=== PATIENT | female | born 1985 ===

== ENCOUNTER 2023-03-16 09:17 | Outpatient (REF) | payer MEDICAID, OTHER, SELFPAY ==
--- NOTE | ~2023-03-16 | US_ITS ---
EXAMINATION: US COMPLETE ABDOMEN WITH LIVER ELASTOGRAPHY CLINICAL INFORMATION: Elevated liver function tests. COMPARISON: None available. TECHNIQUE: Real-time imaging of the abdominal viscera. Noninvasive ultrasound liver fibrosis assessment is performed using Giulia ElastPQ point quantification shear wave elastography (2D-SWE) with a C5-2 MHz transducer. Multiple elastography samples are obtained. FINDINGS: PANCREAS: Normal. The visualized pancreatic head and body are normal in appearance. The remainder of the pancreas is obscured from visualization by the overlying bowel gas. ABDOMINAL AORTA: The proximal, middle, and distal aortic segments are normal in caliber. INFERIOR VENA CAVA: Visualized portions are normal. LIVER: There is hepatomegaly. The liver is normal in contour and increased in echotexture, with pericholecystic sparing. No focal lesion or intrahepatic biliary duct dilatation. The right lobe measures 20.5 cm in length. The left lobe measures 13.5 cm in length. Portal flow is towards the liver (hepatopetal). Shear wave liver elastography median stiffness is 1.49 m/s (reference: normal median stiffness is 1.3 m/s or less). IQR/median stiffness to assess sampling precision is 0.07 (reference: good quality data set is IQR/median stiffness of 0.15 or less). GALLBLADDER: Normal. The gallbladder is physiologically distended without evidence of stones, sludge, polyps, wall thickening or pericholecystic fluid. COMMON BILE DUCT: Normal in caliber measuring 0.3 cm in diameter. RIGHT KIDNEY: Normal. No hydronephrosis. No renal calculi or focal parenchymal lesions. The kidney measures 11.1 cm in maximum dimension. LEFT KIDNEY: Normal. No hydronephrosis. No renal calculi or focal parenchymal lesions. The kidney measures 10.7 cm in maximum dimension. SPLEEN: Normal. The spleen measures 10.9 cm in maximum dimension. FREE FLUID: None. US/US abdomen comp w elastography IMPRESSION: 1. There is generalized increase in hepatic echotexture, consistent with fatty infiltration or hepatocellular disease. Please correlate clinically. Characteristic pericholecystic sparing favors fatty infiltration. No focal hepatic mass or intrahepatic biliary dilatation is seen. 2. There is hepatomegaly. 3. Liver elastography: In the absence of other known clinical signs, measurements rule out compensated advanced chronic liver disease. If there are known clinical signs, further testing may be needed for confirmation. 4. Technically limited ultrasound examination of the pancreas. REFERENCE: Society of Radiologists in Ultrasound Liver Stiffness Thresholds (2020): LIVER STIFFNESS THRESHOLDS: *Liver Stiffness equal or less than 1.3 m/s: High probability of being normal. *Liver Stiffness less than 1.7 m/s: In the absence of other known clinical signs, rules out compensated advanced chronic liver disease. *Liver Stiffness 1.7-2.1 m/s: Suggestive of compensated advanced chronic liver disease but need further test for confirmation. *Liver Stiffness over 2.1 m/s: Rules in compensated advanced chronic liver disease. *Liver Stiffness over 2.4 m/s: Suggestive of clinically significant portal hypertension. QUALITY OF DATA SET: *IQR/Median value equal or less than 0.15 implies a quality data set. *IQR/Median value over 0.15 implies a poor quality data set. SIGNIFICANT CHANGE FROM PRIOR EXAM: Significant change if liver stiffness measurement is 10% or greater from prior exam. OTHER CONSIDERATIONS: The stage of liver fibrosis may be overestimated in the setting of acute hepatitis, liver inflammation, elevated liver function tests, hepatic vascular congestion, obstructive cholestasis, non-fasting state, and infiltrative diseases such as amyloidosis and lymphoma. In some patients with NAFLD, the liver stiffness thresholds for compensated advanced chronic liver disease may be lower. In causes other than viral hepatitis and NAFLD, liver stiffness thresholds are not well established.
== END 2023-03-16 09:18 | disposition home or self-care (01) ==
LOC: HO.US 09:17
PROVIDERS: PCP Internal Medicine; Visit Provider Internal Medicine
DX: R79.89 Other specified abnormal findings of blood chemistry (principal)
CPT/HCPCS: 76705; 76981

== ENCOUNTER 2023-04-12 | Outpatient (REF) | payer MEDICAID, OTHER, SELFPAY ==
[2023-04-13 15:28] LABS: BV Int Neg Control Negative (Negative); BV Int Pos Control Positive (Positive)
== END 2023-04-12 00:01 | disposition home or self-care (01) ==
LOC: HO.HHCLNP
PROVIDERS: Visit Provider Advanced Practice Midwife
DX: N89.8 Other specified noninflammatory disorders of vagina (principal)
CPT/HCPCS: 87480; 87510; 87660

== ENCOUNTER 2023-04-12 19:32 | Outpatient (REF) | payer MEDICAID, OTHER, SELFPAY ==
[2023-04-15 03:44] LABS: HPV mRNA E6/E7 rflx Not Detected (Not Detected)
== END 2023-04-12 19:33 | disposition home or self-care (01) ==
LOC: HO.HHCLNP 19:32
PROVIDERS: Visit Provider Advanced Practice Midwife
DX: Z12.4 Encounter for screening for malignant neoplasm of cervix (principal); Z11.51 Encounter for screening for human papillomavirus (HPV)
CPT/HCPCS: 87624; 88142

== ENCOUNTER 2023-04-20 13:29 | Outpatient (REF) | payer MEDICAID, OTHER, SELFPAY ==
--- NOTE | ~2023-04-20 | US_ITS ---
EXAMINATION: US PELVIS CLINICAL INFORMATION: Check IUD. Strings not seen. COMPARISON: None available. TECHNIQUE: Ultrasound of the pelvis is performed using both transabdominal and transvaginal transducers along with Doppler. Transvaginal imaging is performed due to inadequate visualization transabdominally. FINDINGS: Uterus: The uterus is anteverted and measures 8.4 x 4.6 x 6.4 cm. Nabothian cysts in the cervix. The double wall endometrial thickness is 16 mm. There is an IUD which appears appropriately positioned. The uterus is smooth in contour and has normal myometrial echogenicity. No visible fibroid. Adnexa: Both ovaries are visualized. There is normal color flow to the adnexa. There is no ovarian torsion. There is no pelvic ascites or fluid collection. Right ovary measures 3.2 x 2.2 x 1.9 cm. Volume 6.9 mL. The right ovary appears normal. Left ovary measures 2.2 x 1.7 x 1.3 cm. Volume 2.4 mL. The left ovary appears normal. US/US pelvic and transvaginal IMPRESSION: IUD appears appropriately positioned.
== END 2023-04-20 13:30 | disposition home or self-care (01) ==
LOC: HO.US 13:29
PROVIDERS: PCP Internal Medicine; Visit Provider Advanced Practice Midwife
DX: Z30.431 Encounter for routine checking of intrauterine contraceptive device (principal)
CPT/HCPCS: 76830; 76856

== ENCOUNTER 2023-07-09 12:22 | Outpatient (REF) | payer MEDICAID, OTHER, SELFPAY ==
[2023-07-09 14:04] LABS: Alanine Aminotransferase 213 U/L (0-31); Albumin Level 4.3 g/dL (3.5-5.0); Alkaline Phosphatase 123 U/L (39-117); Aspartate Amino Transferase 154 U/L (5-31); Bilirubin Direct 0.1 mg/dL (0.0-0.5); Bilirubin Total 0.5 mg/dL (0.0-1.0); Total Protein 8.2 g/dL (6.5-8.0)
[2023-07-10 03:47] LABS: HBS Num1 23.09 mIU/mL (0-7.99); HBc Num1 0.21 S/CO (0.00-0.79); HBsAGNum1 0.44 S/CO (0.00-0.99); Hepatitis A Antibody IgM 0.17 Index (0-0.79); Hepatitis B Core Antibody Nonreactive (Nonreactive); Hepatitis B Surface Antigen Negative (Negative); ~HepC Num1 0.07 S/CO (0.00-0.79); ~Hepatitis A Antibody IgM Nonreactive (Nonreactive); ~Hepatitis B Surface Antibody REACTIVE (Nonreactive); ~Hepatitis C Antibody Nonreactive (Nonreactive)
== END 2023-07-09 12:23 | disposition home or self-care (01) ==
LOC: HO.HHCL 12:22
PROVIDERS: Visit Provider Internal Medicine
DX: R79.89 Other specified abnormal findings of blood chemistry (principal)
CPT/HCPCS: 36415; 80076; 86704; 86706; 86709; 86803; 87340

== ENCOUNTER 2023-09-21 11:38 | Outpatient (REF) | payer MEDICAID, OTHER, SELFPAY ==
--- NOTE | ~2023-09-21 | XR_ITS ---
EXAMINATION: XR BILATERAL SHOULDERS CLINICAL INFORMATION: Bilateral shoulder pain, no injury. COMPARISON: None TECHNIQUE: 4 views each of the bilateral shoulders. FINDINGS: RIGHT SHOULDER: Mild degenerative changes in the acromioclavicular joint with joint space narrowing and hypertrophic change. Glenohumeral alignment preserved. No abnormal soft tissue calcifications identified adjacent to the humeral head. LEFT SHOULDER: Minimal degenerative changes in the acromioclavicular joint with joint space narrowing and hypertrophic change. Glenohumeral alignment preserved. No abnormal soft tissue calcifications identified adjacent to the humeral head. XR/XR shoulder RT min 2V IMPRESSION: Mild degenerative changes in bilateral acromioclavicular joints.
--- NOTE | ~2023-09-21 | XR_ITS ---
EXAMINATION: XR BILATERAL SHOULDERS CLINICAL INFORMATION: Bilateral shoulder pain, no injury. COMPARISON: None TECHNIQUE: 4 views each of the bilateral shoulders. FINDINGS: RIGHT SHOULDER: Mild degenerative changes in the acromioclavicular joint with joint space narrowing and hypertrophic change. Glenohumeral alignment preserved. No abnormal soft tissue calcifications identified adjacent to the humeral head. LEFT SHOULDER: Minimal degenerative changes in the acromioclavicular joint with joint space narrowing and hypertrophic change. Glenohumeral alignment preserved. No abnormal soft tissue calcifications identified adjacent to the humeral head. XR/XR shoulder LT min 2V IMPRESSION: Mild degenerative changes in bilateral acromioclavicular joints.
== END 2023-09-21 11:39 | disposition home or self-care (01) ==
LOC: HO.HHCX 11:38
PROVIDERS: Visit Provider Internal Medicine
DX: M25.511 Pain in right shoulder (principal); M25.512 Pain in left shoulder; G89.29 Other chronic pain
CPT/HCPCS: 73030

== ENCOUNTER 2024-04-12 10:15 | Outpatient (REF) | payer MEDICAID, OTHER, SELFPAY ==
[2024-04-12 12:15] LABS: Alanine Aminotransferase 111 U/L (0-31); Albumin Level 4.1 g/dL (3.5-5.0); Alkaline Phosphatase 95 U/L (39-117); Aspartate Amino Transferase 100 U/L (5-31); Bilirubin Direct 0.1 mg/dL (0.0-0.5); Bilirubin Total 0.4 mg/dL (0.0-1.0); Cholesterol 179 mg/dL (<200); HDL Cholesterol 40 mg/dL (>40); LDL Cholesterol Calculated 104 mg/dL (<100); Total Protein 7.5 g/dL (6.5-8.0); Triglycerides 175 mg/dL (<150)
[2024-04-12 13:10] LABS: Reflex LDLD? No
== END 2024-04-12 10:16 | disposition home or self-care (01) ==
LOC: HO.HHCL 10:15
PROVIDERS: Visit Provider Internal Medicine
DX: K76.0 Fatty (change of) liver, not elsewhere classified (principal)
CPT/HCPCS: 36415; 80061; 80076

== ENCOUNTER 2024-12-26 19:18 | Emergency (ER) | payer MEDICAID, OTHER, SELFPAY ==
[2024-12-26 19:39] VITALS: BP 121/72; PULSE 72; RESP 20; TEMP 36.4; O2SAT 99; BMI 25.0
--- NOTE | 2024-12-26 19:43 | ED_ITS ---
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 She reports he has been there for a few days. He reports that it was initially just a small, itchy, irritating rash. Now the area is more red, painful Related Data Previous Rx's ?Medication ?Instructions ?Recorded prednisone 20 mg tablet 40 mg (2 x 20 mg) PO DAILY #10 tabs 12/26/24 valacyclovir 1 gram tablet 1,000 mg PO TID #21 tabs 12/26/24 (Valtrex) Allergies Allergy/AdvReac Type Severity Reaction Status Date / Time No Known Allergies Allergy Verified 12/26/24 19:42 Review of Systems Constitutional: Constitutional: Denies body ache(s), Denies chills and Denies fever(s) Integumentary/Breasts: Skin/Breast: Reports erythema, Reports rash, Reports skin pain, Reports skin swelling, Reports skin ulcer and Reports sores Physical Exam ED Vital Signs: Vital Signs - 24 hr 12/26/24 19:39 Temperature 97.6 F Pulse Rate 72 Respiratory Rate 20 Blood Pressure 121/72 Pulse Oximetry 99 Oxygen Delivery Method Room Air BMI result Body Mass Index 25.0 Skin Other: Patient has 2 separate locations of an erythematous rash with crusted over lesions to the right flank. The lesions do not cross midline and follow a dermatome pattern. No drainage Medical Decision Making Medical Decision Making [facility] Narrative: The patient's rashes quite consistent with shingles rash. We will discharge her with prednisone and valacyclovir. She was encouraged to avoid young children and the elderly Differential Diagnosis Differential Diagnoses: The differential diagnosis associated with the presentation includes Shingles Varicella zoster virus Herpes zoster Dermatitis Discharge Plan Discharge Clinical Impression: Shingles Patient Disposition: Home, Self-Care Instructions: Shingles (ED) Additional Instructions: You have a rash called shingles. This is a reactivation of the chickenpox rash. This is contagious and is dangerous for very young children or elderly Take prednisone 40 mg daily for the next 5 days and valacyclovir 1 g 3 times a day for 1 week Follow-up with your primary doctor, return for new or worsening symptoms Prescriptions: New prednisone 20 mg tablet 40 mg PO DAILY Qty: 10 0RF valacyclovir [Valtrex] 1 gram tablet 1,000 mg PO TID Qty: 21 0RF Print Language: Nepali
[2024-12-26 19:54] VITALS: BP 121/72; PULSE 72; RESP 20; TEMP 36.4; O2SAT 99
--- OUTSIDE RECORDS SUMMARY | 2024-12-26 19:57 | XMS_ITS | Clinical Summary ---
Author Organization [facility] Address [address] [place] [address] Care Team Providers Care City Treasurer Name Role Phone Honey Elias MD Primary Care Provider Allergies No known active allergies Medications omeprazole 20 mg tablet,delayed release (DR/EC) Take 20 mg by mouth. 3 Active copper (ParaGard T 380A) 380 square mm intrauterine device 1 Device by intrauterine route once. Active Active Problems Problem Noted Date Diagnosed Date Stress incontinence in female 11/13/2023 Encounters Date Type Department Care Team Description 12/18/2024 10:30 AM EDT Procedure visit [facility] [address] [place] [id number] Client Services Specialist: Juliette Sears RN Fatty liver 12/15/2024 Telephone [facility] [address] [place] [phone] Client Services Specialist: Kecia Anderson Telephone Intake, Staff PAC Appt Request - Established from Last 3 Months Family History Medical History Relation Name Comments Bladder Cancer Neg Hx Kidney cancer Neg Hx Prostate cancer Neg Hx Urolithiasis Neg Hx Social History Tobacco Use Types Packs/Day Years Used Date Smoking Tobacco: Never Smokeless Tobacco: Never Alcohol Use Standard Drinks/Week Comments Never 0 (1 standard drink = 0.6 oz pur e alcohol) Comments No Sex and Gender Information Value Date Recorded Sex Assigned at Female 03/15/2023 2:12 PM EDT Legal Sex Female 11:17 AM EDT Gender Identity Female 09/10/2024 1:05 PM EST Sexual Orientation Straight 09/10/2024 1: 05 PM EST Last Filed Vital Signs Vital Sign Reading Time Taken Comments Blood Pressure 103/67 09/11/2024 10:04 AM EST Pulse 78 09/11/2024 10:04 AM EST Temperature 36.4 ??C (97.5 ??F) 09/11/2024 1 0:04 AM EST Respiratory Rate - - Oxygen Saturation 96% 09/11/2024 10: 04 AM EST Inhaled Oxygen Concentration - - Weight 80.6 kg (177 lb 11.1 oz) 025 10:33 AM EDT Height - - Body Mass Index - - Plan of Treatment Upcoming Encounters Date Type Department Care Team (Late st Contact Info) Description 09/11/2025 9:30 AM EST Follow-Up [facility] [address] [place] [phone] Client Services Specialist: Samanta Perla NP [address] [place] [phone] Health Maintenance Due Date Last Done Comments HPV and Pap Smear 1985 Varicella Vaccines (1 of 2 - 13+ 2-dose series) 1998 Hepatitis B Vaccines (1 of 3 - 19+ 3-dose series) 2004 DTaP,Tdap,and Td Vaccines (1 - Tdap) 2007 COVID-19 Vaccine ( - 2023-2 5 season) 2024 Depression Screening and Follow-Up 08/30/2024 Social Drivers of Health Annual Screening 08/30/2024 Influenza Vaccine (Season Ended) 2025 07/09/2023 Cervical Cancer Screening 04/12/2026 Pap Smear 04/12/2026 04/12/2023 RSV Vaccine (60+ years old and patients) (1 - 1-dose 75+ series) 2060 HIV Screening Completed 02/23/2023, 02/23/2023 Hepatitis C Screening Completed 02/23/2023 Alcohol/Substance Use Screening Completed 09/11/2024 Pneumococcal Vaccine: Pediatric (0-5 Years) and At-Risk Patients (6-50 Years) Aged Out No longer eligible based on patient's age to complete this topic Procedures * Due to [place] state law, this organization might not be sharing negative HIV tests. Procedure Name Priority Date/Time Associated Diagnosis Comments TRANSIENT ELASTOGRAPHY Routine 12/18/2024 9:34 AM EDT Fatty liver from Last 3 Months Insurance [facility] HSNO/FREE CARE Care Teams City Treasurer Relationship Specialty Start Date End Date Honey Elias MD [address] [place] [phone] PCP - General Internal Medicine 03/15/23
--- OUTSIDE RECORDS SUMMARY | 2024-12-26 19:57 | XMS_ITS | Encounter Summary ---
Author Organization [employer] Address [address] [facility] [address] [place] [address] Care Team Providers Care Poultry Feed Supervisor Name Role Phone Honey Elias MD Primary Care Provide r Reason for Visit * Reason Onset Date Comments New Patient Appt 01/15/2023 Encounter Details Date Type Department Care Team ([facility] st Contact Info) Description 01/15/2023 Telephone [facility] MED[facility] [address] [place] [phone] Honey Elias MD [address] [place] [address] New Patient Appt Social History Tobacco Use Types Packs/Day Years Used Date Smoking Tobacco: Never Assessed Comments Unknown Sex and Gender Information Value Date Recorded Sex Assigned at Female 01/15/2023 8:59 AM EDT Legal Sex Female 12:40 PM EDT Gender Identity Female 01/15/2023 8:59 AM EDT Sexual Orientation Don't know 01/15/2023 8: 59 AM EDT documented as of this encounter Miscellaneous Notes * Telephone Encounter - Forrest Pena Blu - 01/15/2023 9:03 AM EDT PAR Forrest Pena called pt to Offer PIG CONVEYOR OPERATOR appt. Pt demographics and insurance information were verified. Pt reports previous care at [place] (did not inform which facility) During her . Pt reports no medical conditions. Pt is not currently taking any medication . Pt given PIG CONVEYOR OPERATOR appt with on 02/23/2023 @t 10:15 am, PCP Dr. Manzo. Pt will be sent appt reminder card and medical release form and agrees to complete and to return to medical records prior to PIG CONVEYOR OPERATOR appt. documented in this encounter Plan of Treatment Not on file documented as of this encounter Visit Diagnoses Not on filedocumented in this encounter Care Teams Poultry Feed Supervisor Relationship Specialty Start Date End Date Honey Elias MD [address] [place] [phone] PCP - General Internal Medicine 02/23/23 documented as of this encounter
--- OUTSIDE RECORDS SUMMARY | 2024-12-26 19:57 | XMS_ITS | Encounter Summary ---
Author Organization [employer] Address [address] [facility] [address] [place] [address] Care Team Providers Care Stevedore Dock Name Role Phone Honey Elias MD Primary Care Provide r Reason for Visit * Reason Onset Date Comments appt RCT 03/31/2023 Encounter Details Date Type Department Care Team ([facility] st Contact Info) Description 03/31/2023 Telephone [facility] [address] [place] [address] Santiago Patel DDS [address] [place] [address] appt RCT Social History Tobacco Use Types Packs/Day Years Used Date Smoking Tobacco: Never Passive Smoke Exposure: Never Smokeless Tobacco: Never Alcohol Use Standard Drinks/Week Comments Defer 0 (1 standard drink = 0.6 oz pur e alcohol) Depression Answer Date Recorded Patient Health Questionnaire-9 Score 0 02/23/2023 Depression Answer Date Recorded Patient Health Questionnaire-2 Score 0 02/23/2023 Comments Unknown Sex and Gender Information Value Date Recorded Sex Assigned at Female 01/15/2023 8:59 AM EDT Legal Sex Female 12:40 PM EDT Gender Identity Female 01/15/2023 8:59 AM EDT Sexual Orientation Don't know 01/15/2023 8: 59 AM EDT documented as of this encounter Miscellaneous Notes * Telephone Encounter - Mary Hernandez - 03/31/2023 9:[address] Trujillo referred to patient to either Jung Patel or Stacie for Rct treatment. The appt was not active requested so I did waitl ist. I wait listed under Jevonu because he is the specialist. Patient was upset because she is in pain and inflamed. I did tell patient that unfortunately the provider has a waiting list and there is no sure way to bump up a patient because everyone on the list isin the same situation. Patient understood. Just concerned due to pain DR documented in this encounter Plan of Treatment Not on file documented as of this encounter Visit Diagnoses Not on filedocumented in this encounter Additional Health Concerns Assessment Noted Time PHQ-9 Depression Total Score: 0 02/24/20 10:21 AM EDT documented as of this encounter Care Teams Stevedore Dock Relationship Specialty Start Date End Date Honey Elias MD [address] [place] [phone] PCP - General Internal Medicine 02/23/23 documented as of this encounter
--- OUTSIDE RECORDS SUMMARY | 2024-12-26 19:57 | XMS_ITS | Clinical Summary ---
Author Organization [employer] Address [address] [place] [address] Care Team Providers Care Overhead Cleaner Name Role Phone Honey Elias MD Primary Care Provide r Allergies No known active allergies Medications amoxicillin (Amoxil) 500 MG capsule Take 1 capsule (500 mg) by mouth every 8 (eight) hours. 30 capsule 3 Active Additional Information Patient not taking.Reported on 10/20/2024 hydrocortisone 1 % ointment Apply to affected area twice a day x 7 days 56 g 3 Active Additional Information Patient not taking.Reported on 10/20/2024 omeprazole (PriLOSEC) [address] capsuleIndicatio ns:Gastroesophag eal reflux disease without esophagitis TAKE 1 CAPSULE BY MOUTH TWICE DAILY 60 capsule 2 3 Active Additional Information Patient not taking.Reported on 10/20/2024 polycarbophil (FiberCon) 625 MG tabletIndication s:Other constipation Take 1 tablet (625 mg) by mouth Once per day. 30 tablet 11 4 04/12/20 25 Active Additional Information Patient not taking.Reported on 10/20/2024 Active Problems Problem Noted Date Diagnosed Date Other constipation 04/12/2024 Assessment & Plan (04/12/2024 3:57 PM EDT): Increase water intake Increase fiber on diet I advise cardiovascular exercise/walking Chronic pain of both shoulders 09/21/2023 Assessment & Plan (09/21/2023 4:27 PM EST): Acetaminophen PRN XRAY ordered patient to be contacted with results Encounter for preventative adult health care [facility] 09/21/2023 Assessment & Plan (09/21/2023 4:29 PM EST): See HPI Elevated LFTs 07/09/2023 Assessment & Plan (07/09/2023 12:06 PM EST): Hepatitis panel I will repeat LFts and monitor Dental abscess 03/25/2023 Dental caries 03/25/2023 Periodontal disease 03/25/2023 Hepatic steatosis 03/24/2023 Assessment & Plan (04/12/2024 3:52 PM EDT): I will repeat LFTs today Extensive discussion about healthy diet done today I will refer her again to gastroenterology [facility] Assessment & Plan (09/21/2023 4:27 PM EST): LFTs are persistently high she was referred to GI in [facility], she has an appointment on 12/13/2023 I advise not to miss her appointment Assessment & Plan (03/24/2023 9:39 AM EDT): I financial services counselor patient about healthy diet, low fat and low calorie Referral to weight management is pending Repeat LFTs lipid panel and US in 6 months Gastroesophageal reflux disease without esophagi tis 02/23/2023 Assessment & Plan (07/09/2023 12:05 PM EST): I advise patient to avoid NSAIDs, spicy and acid food, I advise to eat at the same time every day, I advise to elevate the head of the bed and take medications as prescribe Assessment & Plan (03/24/2023 9:30 AM EDT): Patient is inform H pylori test is negative I discontinue famotidine and I started her on omeprazole 20mg BID I advise patient to avoid NSAIDs, spicy and acid food, I advise to eat at the same time every day, I advise to elevate the head of the bed and take medications as prescribe Assessment & Plan (02/23/2023 10:54 AM EDT): I advise patient to avoid NSAIDs, spicy and acid food, I advise to eat at the same time every day, I advise to elevate the head of the bed and take medications as prescribe Stress incontinence of urine 02/23/2023 Assessment & Plan (04/12/2024 3:53 PM EDT): Improved with Kegel exercises Assessment & Plan (07/09/2023 12:06 PM EST): Waiting for MEDICAL INSURANCE CLERK consult Recurrent UTI 02/23/2023 IUD check up 02/23/2023 Chronic right-sided low back pain with right-matthew ed sciatica 02/23/2023 Assessment & Plan (04/12/2024 3:54 PM EDT): C/w exercises at home Acetaminophen and flexeril PRN (patient is aware of side effects) Assessment & Plan (09/21/2023 4:28 PM EST): Exercises to do at home printed today C/w acetaminophen and flexeril PRN (patient is aware of side effect somnolence, do not drive) Assessment & Plan (07/09/2023 12:08 PM EST): Apply heat on affected area Patient will try to book PT appointments Assessment & Plan (03/24/2023 9:32 AM EDT): Patient reports her insurance was not cover for her PT but she call to one of the centers that partially covers her therapies I will put referral in again Acetaminophen PRN for pain Class 1 obesity due to exces s calories without serious comorbidity with body mass index (BMI) of 32.0 to 32.9 in adult 02/23/2023 Assessment & Plan (09/21/2023 4:28 PM EST): Counseling done declines for now sat instructor referral Assessment & Plan (07/09/2023 12:07 PM EST): Today extensive discussion was done about life style modifications I advise healthy diet (low calorie) and cardiovascular exercise Assessment & Plan (02/23/2023 10:55 AM EDT): Today extensive discussion was done about life style modifications I advise healthy diet (low calorie) and cardiovascular exercise Encounters Date Type Department Care Team Description 10/20/2024 9:00 AM EST Office Visit [facility] [address] [place] [address] Kobe Quinones DDS from Last 3 Months Immunizations Name Administration Dates Next Due Influenza injectable quadrivalent preservative f ree 07/09/2023 Social History Tobacco Use Types Packs/Day Years Used Date Smoking Tobacco: Never Passive Smoke Exposure: Never Smokeless Tobacco: Never Tobacco Cessation:Counseling Given: Not Answered Alcohol Use Standard Drinks/Week Comments Never 0 (1 standard drink = 0.6 oz pur e alcohol) Depression Answer Date Recorded Patient Health Questionnaire-9 Score 0 04/12/2024 Patient Health Questionnaire-9 Score 0 04/12/2024 Last PHQ-9: Questionnaire Data Not on file 0 04/12/2024 Housing Stability Answer Date Recorded What is your housing situation today? I have chanelldeuce montano 06/15/[address] you li ve. Do you have problems with any of the following? None of the above 06/15/2023 Food Insecurity Answer Date Recorded Within the past 12 months, y ou worried that your food would run out before you got money to buy more: Never True 06/15/2023 Within the past 12 months,th e food you bought just didn't last and you didn't have enough money to get more: Never True Transportation Answer Date Recorded In the past 12 months, has l ack of transportation kept you from medical appts, meetings, work or from getting things needed for daily living? No 06/15/2023 Utilities Answer Date Recorded In the past 12 months, has t he electric, gas, oil or water company threatened to shut off services in your home? No 06/15/2023 Depression Answer Date Recorded Patient Health Questionnaire-2 Score 0 04/12/2024 Comments No Sex and Gender Information Value Date Recorded Sex Assigned at Female 01/15/2023 8:59 AM EDT Legal Sex Female 12:40 PM EDT Gender Identity Female 01/15/2023 8:59 AM EDT Sexual Orientation Don't know 01/15/2023 8: 59 AM EDT Last Filed Vital Signs Vital Sign Reading Time Taken Comments Blood Pressure 114/66 10/20/2024 8:57 AM EST Pulse 75 04/12/2024 9:28 AM EDT Temperature 37.5 ??C (99.5 ??F) 04/12/2024 9:28 AM ED T Respiratory Rate 16 04/12/2024 9:28 AM EDT Oxygen Saturation 98% 04/12/2024 9:28 AM EDT Inhaled Oxygen Concentration - - Weight 78.6 kg (173 lb 3.2 oz) 04/12/2024 9:28 A M EDT Height 152.4 cm (5') 04/12/2024 9:28 AM EDT Body Mass Index 33.83 04/12/2024 9:28 AM EDT Plan of Treatment Health Maintenance Due Date Last Done Comments Dental Prophylaxis 1985 Family Planning (PISQ) 2000 DTaP/Tdap/Td Vaccines (1 - Tdap) 2004 Hepatitis A Vaccines (1 of 2 - Risk 2-dose series) 2004 Hepatitis B Vaccines (1 of 3 - 19+ 3-dose series) 2004 Dental Oral Exam 11/12/2023 05/13/2023 COVID-19 Vaccine (1 - 2023-2 5 season) 2024 Influenza Vaccine (#1) 2024 07/09/2023 Dental X-Ray: Bitewings 05/14/2024 05/13/2023 SDOH Screening 09/10/2024 09/10/2023 Alcohol/Substance Use Screening 04/12/2025 04/12/2024 Depression Screening 04/12/2025 04/12/2024, 04/12/2024 Tobacco Screening 10/20/2025 10/20/2024 Dental X-Ray: Full Mouth 05/14/2026 05/13/2023 Cervical Cancer Screening 04/12/2028 HPV/Cotest 04/12/2028 04/12/2023 Pap Smear 04/12/2028 04/12/2023 Lipid Panel 04/12/2029 04/12/2024, 02/23/2023 Zoster Vaccines (1 of 2) 2035 RSV Patients and Patients Aged 60 years or older (1 - 1-dose 75+ series) 2060 HIV Screening Completed 02/23/2023 Hepatitis C Screening Completed 07/09/2023 , 02/23/2023 HIB Vaccines Aged Out No longer eligi ble based on patient's age to complete this topic HPV Vaccines Aged Out No longer eligi ble based on patient's age to complete this topic IPV Vaccines Aged Out No longer eligi ble based on patient's age to complete this topic Meningococcal Vaccine Aged Out No ban shi eligible based on patient's age to complete this topic Pneumococcal Vaccine: Pediatrics (0 to 5 Years) and At-Risk Patients (6 to 49) Years) Aged Out No longer eligible b ased on patient's age to complete this topic RSV under 20 months Aged Out No longe r eligible based on patient's age to complete this topic Rotavirus Vaccines Aged Out No longer eligible based on patient's age to complete this topic Procedures Procedure Name Priority Date/Time Associated Diagnosis Comments NO CHARGE VISIT Routine 10/20/2024 9:00 AM EST LIPID PANEL WITH REFLEX TO DIRECT LDL Routine 04/12/2024 10:17 AM EDT Hepatic steatosis HEPATITIS PANEL, GENERAL Routine 07/09/2023 12:23 PM EST Elevated LFTs INTRAORAL - COMPLETE SERIES OF RADIOGRAPHIC IMAGES Routine 05/13/2023 2:00 PM EDT COMPREHENSIVE ORAL EVALUATION - NEW OR ESTABLISHED PATIENT Routine 05/13/2023 2:00 PM EDT HPV MRNA E6/E7 REFLEX TO HPV 16, 18/45 Routine 04/12/2023 12:00 AM EDT PAP SMEAR Routine 04/12/2023 HIV 1/2 ANTIGEN/ANTIBODY, FOURTH GENERATION W/RFL Routine 02/23/2023 11:06 AM EDT from Last 3 Months or Most Recently Relevant to Health Maintenance Results * (ABNORMAL) Lipid Panel with Reflex to Direct LDL (04/12/2024 10:17 AM EDT) Triglycerides 175(H) <150 mg/dL [facility] Comment:Desirable Triglyceri de: less than 150 mg/dLBorderline High Triglyceride 150-199 mg/dLHigh Triglyceride: 200-499 mg/dLVery High Triglyceride: greater than or equal to 5OO mg/dL Cholesterol 179 <200 mg/dL [facility] Comment:Desirable Cholestero l: less than 200 mg/dLBorderline High Cholesterol: 200-239 mg/dLHigh Cholesterol: greater than 239 mg/dL LDL Cholesterol Calculated 104(H) <100 mg/dL [facility] Comment:Desirable LDL: less than 100 mg/dLNear Optimal/Above Optimal LDL: 110- 129 mg/dLBorderline High LDL: 130-159 mg/dLHigh LDL: 160-189 mg/dLVery High LDL: greater than or equal to 190 mg/dL HDL Cholesterol 40(L) >40 mg/dL [facility] Comment:Desirable HDL: great er than 40 mg/dL Note: This HDL assay may give artificially low results in patients with liver disease. Blood 04/12/2024 10:1 7 AM EDT 04/12/2024 11:33 AM EDT us Honey Santamaria MD LAB BLOOD ORDERABLES Final Result [facility] [address] [place] [phone] * Hepatitis A,B,C Profile (07/09/2023 12:23 PM EST) Hepatitis A IgM Nonreactive Nonreactive [facility] Comment:IgM antibodies to SOLITARIO V not detected; does not exclude earlyacute or recovered HAV infection. ~Hepatitis B Surface Antibody REACTIVE Nonreactive [facility] Comment:REACTIVE: > 11.99 mI U/mL Hepatitis B Core Antibody Nonreactive Nonreactive [facility] Hepatitis C Antibody Nonreactive Nonreactive [facility] Comment:Antibodies to HCV no t detected; does not exclude early acuteHCV infection. Hepatitis B Surface Ag Negative Negative [facility] Blood Venous blood specimen / Unknown 07/09/2023 12:23 PM EST 07/09/2023 1:15 PM EST us Honey Santamaria MD LAB BLOOD ORDERABLES Final Result Performing Organization Address [facility] de Phone Number [facility] [address] [place] [phone] * HPV mRNA E6/E7 w/Reflex to HPV Genotypes 16, 18/45 (04/12/2023 12:00 AM EDT) HPV nRNA E6/E7 Not Detected Not Detected [facility] Comment:Methodology: Transcr iption-Mediated AmplificationThis assay detects E6/E7 viral messenger RNA (mRNA) from 14high-risk HPV types (16,18,31,33,35,39,45,51,52,56,58,59,66,68).Cervical sources are required for HPV testing.If a vaginal source from a patient who has had atotal hysterectomy with removal of cervix wassubmitted, please contact the testing laboratoryfor alternative testing options.For additional information, please refer tohttp://education.[employer]/faq/QKV482h9(This link if provided for information/educational purposes only.)THIS TEST WAS PERFORMED AT:[facility] [place] [phone] PAUL MD HPV mRNA E6/E7 [facility] HPV 16 RNA [facility] HPV 18/45 RNA [facility] 04/12/2023 04/13/2023 10: 20 AM EDT us Rosa Alejandre CNM LAB CYTOLOGY ORDERABLES F inal Result Performing Organization Address [facility]/ZIP Co de Phone Number [facility] [address] [place] [phone] * Pap Smear (04/12/2023) 04/12/2023 04/13/2023 10: 20 AM EDT Narrative [facility] - 04/27/2023 10:23 AM EDT ----- ------- Name: Gareth GaxiolaHoney ?Age/Sex: 37/F ? : 1985 Unit#: [id number] ?? Attend Dr: ROSA ALEJANDRE CNM ?Re04/12/23 ?Status: DEP REF ? Location: HO.SADIACLNP ? Disch: ? ----- ------- SPEC : [id number] ?RECD: 04/13/23-0 ? STATUS: ??SOUT ? REQ NUM: [id number] ? CAROLYNN: 04/12/23- ? SUBM DR: ROSA ALEJANDRE CNM ? ENTERED: ??04/13/23-1056 ?SP TYPE: Pap Smr ?OTHR DR: ? ORDERED: ??Pap Smear ? Interpretation ?? Satisfactory for evaluation. ?? Negative for intraepithelial lesion or malignancy. ?HPV mRNA E6/E7: ?NOT DETECTED ? This assay detects E6/E7 viral messenger RNA (mRNA) from 14 high-risk HPV types (16, 18, ?? 31, 33, 35, 39, 45, 51, 52, 56, 58, 59, 66, 68) ?? HPV testing performed by [facility], [place], [place]. ??See reference laboratory ?? pion of the EMR for entire report. ?Clinical Information LMP:Unknown date Previous PAP test:Unknown date/findings ? Material Received ?? ThinPrep-Vaginal/Cervical ----- ------- Signed (signature on file) IMELDA Perkins (ASC) 04/27/23 1023 ? ----- ------- ? END OF REPORT ? us Rosa Martin [facility] CYTOLOGY ORDERABLES F inal Result Performing Organization Address City/[facility]/ZIP Co de Phone Number [facility] [address] [place] [phone] * HIV-1/2 Antigen and Antibodies, Fourth Generation, with Reflexes (02/23/2023 11:06 AM EDT) [facility] HIV Antigen/Antibody, 4th Generation NON-REAC TIVE NON-REAC TIVE [facility] [employer] [facility] Comment: HIV-1 antigen and HIV-1/HIV-2 antibodies were not detected. There is no laboratory evidence of HIV infection. PLEASE NOTE: This information has been disclosed to you from records whose confidentiality may be protected by state law. ??If your state requires such protection, then the state law prohibits you from making any further disclosure of the information without the specific written consent of the person to whom it pertains, or as otherwise permitted by law. A general authorization for the release of medical or other information is NOT sufficient for this purpose. ?? For additional information please refer to http://education.[employer]/faq/CCB409 (This link is being provided for informational/ educational purposes only.) The performance of this assay has not been clinically validated in patients less than 2 years old. 02/23/2023 11:0 6 AM EDT 02/23/2023 11:07 AM EDT us Honey Santamaria MD LAB BLOOD ORDERABLES Final Result [facility] [address], [place] [phone] [employer] [facility] [facility] [employer] [facility] [address] [place] [phone] from Last 3 Months or Most Recently Relevant to Health Maintenance Insurance [place]-[facility] MEDICAID LIMITED ADULT DENTAL - HSN FULL (MEDICAID) Care Teams Overhead Cleaner Relationship Specialty Start Date End Date Honey Elias MD [address] [place] [phone] PCP - General Internal Medicine 02/23/23
== END 2024-12-26 19:55 | disposition home or self-care (01) ==
PROVIDERS: Emergency Provider Emergency Medicine; PCP Internal Medicine
DX: B02.9 Zoster without complications (principal); R21 Rash and other nonspecific skin eruption
CPT/HCPCS: 99282; 99283

== ENCOUNTER 2025-03-19 14:52 | Outpatient (REF) | payer MEDICAID, OTHER, SELFPAY ==
--- OUTSIDE RECORDS SUMMARY | 2025-03-19 15:38 | XMS_ITS | Encounter Summary ---
Author Organization [employer] Address [address] [place] [address] Care Team Providers Care Knife Machine Operator Name Role Phone Honey Elias MD Primary Care Provide r Reason for Visit * Reason Onset Date Comments appt RCT 03/31/2023 Encounter Details Date Type Department Care Team ([facility] st Contact Info) Description 03/31/2023 Telephone [facility] [address] [place] [phone] Santiago Patel DDS [address] [place] [address] appt RCT Social History Tobacco Use Types [...] Miscellaneous Notes * Telephone Encounter - Mary Rios - 03/31/2023 9:[address] Trujillo referred to patient to either Jung Patel or Stacie for Rct treatment. The appt was not active requested so I did waitl ist. I wait listed under Amanda because he is the specialist. Patient was upset because she is in pain and inflamed. I did tell patient that unfortunately the provider has a waiting list and there is no sure way to bump up a patient because everyone on the list isin the same situation. Patient understood. Just concerned due to pain documented in this encounter Plan of Treatment Not on file documented as of this encounter Visit Diagnoses Not on filedocumented in this encounter Additional Health Concerns Assessment Noted Time PHQ-9 Depression Total Score: 0 02/24/20 10:21 AM EDT documented as of this encounter Care Teams Knife Machine Operator Relationship Specialty Start Date End Date Honey Elias MD [address] [place] [address] PCP - General Internal Medicine 02/23/23 documented as of this encounter
--- OUTSIDE RECORDS SUMMARY | 2025-03-19 15:38 | XMS_ITS | Referral Summary ---
Author Organization [facility] Address [address] [place] [address] Care Team Providers Care Curriculum Developer Name Role Phone Honey Elias MD Primary Care Provider Encounters Date Type Department Care Team Description 12/18/2024 10:30 AM EDT Procedure visit [facility] [address] [place] [phone] Framing Mill Supervisor: Juliette Sears RN Fatty liver from Last 3 Months Allergies No known active allergies Medications omeprazole 20 mg tablet,delayed release (DR/EC) Take 20 mg by mouth. 3 Active copper (ParaGard T 380A) 380 square mm intrauterine device 1 Device by intrauterine route once. Active Active Problems Problem Noted Date Diagnosed Date Stress incontinence in female 11/13/2023 Social History Tobacco Use Types Packs/Day Years [...] 78 09/11/2024 10:04 AM EST Temperature 36.4 C (97.5 F) 09/11/2024 10:04 AM EST Respiratory Rate - - Oxygen Saturation 96% 09/11/2024 10: 04 AM EST Inhaled Oxygen Concentration - - Weight 80.6 kg (177 lb 11.1 oz) 025 10:33 AM EDT Height - - Body Mass Index - - Plan of Treatment Upcoming Encounters Date Type Department Care Team ([facility] st Contact Info) Description 09/11/2025 9:30 AM EST Follow-Up [facility] [address] [place] [address] Framing Mill Supervisor: Samanta Perla NP [address] [place] [address] Procedures * Due to [place] Polar law, this organization might not be sharing negative HIV tests. Procedure Name Priority Date/Time Associated Diagnosis Comments TRANSIENT ELASTOGRAPHY Routine 12/18/2024 9:34 AM EDT Fatty liver from Last 3 Months Results * Due to [place] Polar law, this organization might not be sharing negative HIV tests. * (ABNORMAL) Transient Elastography (12/18/2024 9:34 AM EDT) CAP 336(H) 90 - 248 dB/m [facility] Comment:S0 < 5% fat depositi on; S1 5-33% fat deposition; S2 34-66% fat deposition; S3 >66% fat deposition; Stiffness 7.3(H) 1.47 - 7.0 kPa [facility] Comment:F0 No fibrosis; F1 m ild fibrosis; F2 moderate fibrosis; F3 severe fibrosis; F4 cirrhosis; CAP IQR 42 [facility] E IQR 1.1 [facility] IQR/Median Ratio 15 [facility] Sourcing Analyst Name Virgie CLARK [facility] Probe Size XL [facility] 12/18/2024 9:34 AM EDT Narrative [facility] - 12/18/2024 9:34 AM EDT [facility] REPORT Honey Gaxiola is a 39 y.o. female referred for a [facility] Referring Physician: Samanta Dutta NP [address] [place] [address] PRIMARY CARE PROVIDER: Honey Santamaria MD Procedure Done By: Juliette Garvin RN Indication: Hepatic Steatosis Results: The Median score was 7.3 kPa with a IQR of 15 % which correlates to F0-F1, The CAP score was 336 dB/m which correlates to steatosis grade of S3 Samanta Dutta NP Samanta Dutta [facility] PROCEDURE ORDERABLES Final Result [facility] from Last 3 Months Insurance [facility] HSNO/FREE CARE Care Teams Curriculum Developer Relationship Specialty Start Date End Date Honey Elias MD [address] [place] [phone] PCP - General Internal Medicine 03/15/23
[2025-03-19 16:48] LABS: Alanine Aminotransferase 159 U/L (0-31); Albumin Level 4.2 g/dL (3.5-5.0); Alkaline Phosphatase 102 U/L (39-117); Aspartate Amino Transferase 152 U/L (5-31); Total Protein 7.3 g/dL (6.5-8.0)
== END 2025-03-19 14:53 | disposition home or self-care (01) ==
LOC: HO.HHCL 14:52
PROVIDERS: PCP Internal Medicine; Visit Provider Internal Medicine
DX: L65.9 Nonscarring hair loss, unspecified (principal); K76.0 Fatty (change of) liver, not elsewhere classified
CPT/HCPCS: 36415; 80076; 84443